=== PATIENT | female | born 2005 | race Caucasian/White ===

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

== ENCOUNTER → 2025-04-30 10:23 | Outpatient (BNVA) | payer MEDICAID, SELFPAY | PROVIDERS: PCP Nurse Practitioner Family; Visit Provider Nurse Practitioner Women's Health | DX: Z01.419 Encounter for gynecological examination (general) (routine) without abnormal findings (principal) | CPT/HCPCS: 87491; 87591; 87661; 88175 ==

== ENCOUNTER 2025-09-08 12:49 | Emergency (ER) | payer MEDICAID, SELFPAY ==
[2025-09-08 12:51] VITALS: BP 147/97; PULSE 116; TEMP 37.1; O2SAT 99
--- OUTSIDE RECORDS SUMMARY | 2025-09-08 12:54 | XMS_ITS | Clinical Summary ---
Author Organization [facility] Address [address] [facility] [address] [place] [address] Phone Care Team Providers Care Quality Control Inspector Name Role Phone Unavailable Primary Care Provider Unavailabl e Allergies Active Allergy Reactions Criticality Noted Date Comments Doxycycline Rash Low 02/16/2022 Medications norgestimate-eth inyl estradioL (ORTHO TRI-CYCLEN) 0.18/0.215/0.25 mg-35 mcg (28) tablet Take 1 Tablet by mouth daily. Active Social History Tobacco Use Types Packs/Day Years Used Date Smoking Tobacco: Never Smokeless Tobacco: Never Alcohol Use Standard Drinks/Week Comments Never 0 (1 standard drink = 0.6 oz pur e alcohol) Comments No Sex and Gender Information Value Date Recorded Sex Assigned at Not on file Legal Sex Female 10:23 PM CDT Gender Identity Not on file Sexual Orientation Not on file Last Filed Vital Signs Vital Sign Reading Time Taken Comments Blood Pressure 116/84 02/17/2022 12:15 AM CDT Pulse 87 02/17/2022 12:15 AM CDT Temperature 36.9 C (98.4 F) 02/16/2022 10:29 PM CDT Respiratory Rate 17 02/17/2022 12:15 AM CDT Oxygen Saturation 100% 02/17/2022 12:15 AM CDT Inhaled Oxygen Concentration - - Weight 56.1 kg (123 lb 9.6 oz) 02/16/2022 10:29 PM CDT Height 160 cm (5' 3 ) 02/16/2022 10:29 PM CDT Body Mass Index 21.89 02/16/2022 10:29 PM CDT Plan of Treatment Health Maintenance Due Date Last Done Comments CHLAMYDIA SCREENING (ANNUAL) 11-24 YEARS 2014 HPV VACCINES (1 - 3-dose series) 2018 DTAP/TDAP/TD VACCINES (1 - Tdap) 2022 HEPATITIS B VACCINES (1 of 3 - 19+ 3-dose series) 03/25 CERVICAL CANCER SCREENING 2024 HPV/Cotest (21-29) 2024 PAP SMEAR 2024 INFLUENZA VACCINE (#1) 2025 Insurance [facility] [facility] MEDICAID
[2025-09-08 13:12] LABS: Glucose Urine UA Negative (Normal); Nitrate Urine Negative (Negative); Specific Gravity, Urine 1.017 (1.005-1.030)
[2025-09-08 13:16] LABS: Add Urine Microscopic? YES
--- NOTE | 2025-09-08 13:17 | ED_ITS ---
HPI - Female Genitourinary 2 General: Chief complaint: Urogenital-Female Stated complaint: abd pain Time Seen by Provider: 09/08/25 13:12 Source: patient Mode of arrival: ambulatory Limitations: no limitations History of Present Illness: 20-year-old female states she has been h aving left flank pain that has been going on over the last 2 days. States sharp pain worse with palpation rates the pain a 6 out of 10 currently. States she has had some dysuria and hematuria. She denies any vomiting or diarrhea denies any fevers. Related Data Previous Rx's ?Medication ?Instructions ?Recorded norgestimate-ethinyl estradiol 1 tab PO DAILY #84 tabs 10/31/24 0.18mg/0.215mg/0.25mg-0.035mg(28)tablet (Ortho Tri-Cyclen (28)) cephalexin 500 mg capsule 500 mg PO TID 7 days #21 cap s 09/08/25 ondansetron 4 mg disintegrating 4 mg PO Q6H PRN nausea and 09/08/25 tablet vomiting #14 tabs Allergies Allergy/AdvReac Type Severity Reaction Status Date / Time doxycycline Allergy Mild rash Verified 09/08/25 12:56 Review of Systems 2 : Reports: flank pain and dysuria PFSH ED 2 PFSH: Medical History Surveillance for control, oral contraceptives Environmental and seasonal allergies Surgical History Hx of appendectomy Family History (Updated 04/30/25 @ 09:40 by Lissette Barnes CMA) Grandfather Heart disease Hyperlipidemia Father Hypertension Denies family history of Colon cancer Ovarian cancer Diabetes Dementia Breast cancer Uterine cancer Thyroid disease Stroke Social History Smoking and tobacco/nicotine status: former use of tobacco/nicotine Second hand smoke exposure: No Alcohol intake: never Substance/Drug Use: never Adopted: No Highest education level completed: 12th Grade, No Diploma Current occupation: [employer] Do you think of yourself as: Straight/Heterosexual Current gender identity: Female Female Reproductive History: Para: 0 Physical Exam 2 Const: COMMON NORMALS: no acute distress, patient oriented x3 and healthy appearing HENMT: COMMON NORMALS: normocephalic and atraumatic HEAD & SCALP: n ormocephalic and atraumatic Neck/C-Spine: COMMON NORMALS: full ROM and supple Chest: COMMONS NORMALS: normal inspection of the chest and normal palpation of entire chest wall Resp: COMMON NORMALS: normal respiratory effort, No retractions, No use of accessory muscles and clear to auscultation bilaterally AUSCULTATION: clear to auscultation bilaterally Cardio: COMMON NORMALS: regular rate, regular rhythm and No murmurs present (Cardio) RATE: regular rate RHYTHM: regular rhythm GI: COMMON NORMALS: Normal to inspection, nondistended, normoactive bowel sounds present, Soft to palpation, non-tender and no masses PALPATION: Yes Soft to palpation Extremity: COMMON NORMALS: normal to inspection and full ROM Neuro: COMMON NORMALS: patient oriented x3, moves all extremities and no focal motor deficits Psych: COMMON NORMALS: mental status grossly normal, Normal thought process present and cooperative THOUGHT PROCESS: Normal thought process present Skin: COMMON NORMALS: no rashes or lesions noted and no wounds GENERAL SKIN EXAM: no rashes or lesions noted Course 2 Vital Signs: Vital signs: Vital Signs Temperature 98.8 F 09/08/25 12:51 Pulse Rate 116 H 09/08/25 12:51 Respiratory Rate 16 09/08/25 13:43 Blood Pressure 147/97 09/08/25 12:51 Pulse Oximetry 96 09/08/25 13:43 Oxygen Delivery Me thod Room Air 09/08/25 12:51 MDM - Female Medical Decision Making Patient presents with left flank pain along with dysuria is been going on for 2 days. Differential includes kidney stone, UTI, pyelonephritis. Patient's pain here has improved blood work shows no significant abnormality white count here is normal no signs of sepsis urine does show UTI. She is not in severe pain and is mainly when she urinates no signs of kidney stone. Did give her IV Rocephin here along with fluids will prescribe her Keflex and Zofran for home she is to follow-up with her PCP and return if worsening I did go over all these findings with her she understands agrees to plan. Medical Records I reviewed the patient's medical records. Lab Data I reviewed the patient's lab results. 09/08/25 13:25 09/08/25 13:25 Laboratory Results WBC 10.65 10^3/uL (3.29-11.43) 09/08/25 13:25 RBC 4.56 10^6/uL (3.85-5.65) 09/08/25 13:25 Hgb 13.70 g/dL (11.27-16.99) 09/08/25 13:25 Hct 40.2 % (36-47) 09/08/25 13:25 MCV 88.2 fl (85-98) 09/08/25 13:25 MCH 30.0 pg (27-33) 09/08/25 13:25 MCHC 34.1 g/dL (30-55) 09/08/25 13:25 RDW 12.4 % (12.1-15.1) 09/08/25 13:25 Plt Count 250 10^3/cmm (157-399) 09/08/25 13:25 MPV 9.5 fL (7.4-10.4) 09/08/25 13:25 Neut % (Auto) 78.2 % 09/08/25 13:25 Lymph % (Auto) 11.0 % 09/08/25 13:25 [place] % (Auto) 10.1 % 09/08/25 13:25 Eos % (Auto) 0.0 % 09/08/25 13:25 Baso % (Auto) 0.3 % 09/08/25 13:25 Neut # (Auto) 8.33 10^3/uL (1.8-7.7) H 09/08/25 13:25 Lymph # (Auto) 1.2 10^3/uL (0.8-4.8) 09/08/25 13:25 [place] # (Auto) 1.1 10^3/uL (0.2-0.9) H 09/08/25 13:25 Eos # (Auto) 0.0 10^3/uL (0.0-0.8) 09/08/25 13:25 Baso # (Auto) 0.0 10^3/uL (0.0-0.1) 09/08/25 13:25 Nucleated RBC % (auto) 0 % 09/08/25 13:25 Nucleated RBCs # 0.0 /100WBC 09/08/25 13:25 Sodium 133 mmol/L (136-145) L 09/08/25 13:25 Potassium 4.1 mmol/L (3.5-5.1) 09/08/25 13:25 Chloride 99 mmol/L (98-107) 09/08/25 13:25 Carbon Dioxide 23 mmol/L (22-29) 09/08/25 13:25 Anion Gap 15.1 (5-19) 09/08/25 13:25 BUN 8 mg/dL (6-20) 09/08/25 13:25 Creatinine 0.7 mg/dL (0.5-0.9) 09/08/25 13:25 GFR Calculation 104.6 mL/min (90-130) 09/08/25 13:25 Glucose 104 mg/dL (65-115) 09/08/25 13:25 Calculated Osmolality 275 mOsm/kg (285-295) L 09/08/25 13:25 Calcium 9.6 mg/dL (8.5-10.5) 09/08/25 13:25 Total Bilirubin 0.6 mg/dL (0.15-1.2) 09/08/25 13:25 AST 11 U/L (0-32) 09/08/25 13:25 ALT 9 U/L (0-33) 09/08/25 13:25 Alkaline Phosphatase 75 U/L (35-105) 09/08/25 13:25 Total Protein 8.0 g/dL (6.6-8.7) 09/08/25 13:25 Albumin 4.3 g/dL (3.5-5.2) 09/08/25 13:25 Globulin 3.7 g/dL (1.3-4.6) 09/08/25 13:25 Lipase 12 U/L (13-60) L 09/08/25 13:25 HCG, Qual Negative (Negative) 09/08/25 13:25 Urine Color Yellow (Yellow) 09/08/25 13:06 Urine Appearance Turbid (CLEAR) A 09/08/25 13:06 Urine pH 5.5 (5-7) 09/08/25 13:06 Ur Specific [place] 1.017 (1.005-1.030) 09/08/25 13:06 Urine Protein 3+ (Negative) A 09/08/25 13:06 Urine Glucose (UA) Negative (Normal) 09/08/25 13:06 Urine Ketones 1+ (Negative) H 09/08/25 13:06 Urine Blood 2+ (Negative) A 09/08/25 13:06 Urine Nitrate Negative (Negative) 09/08/25 13:06 Urine Bilirubin Negative (Negative) 09/08/25 13:06 Urine Urobilinogen 1.0 mg/dL (Negative) 09/08/25 13:06 Ur Leukocyte Esterase 2+ (Negative) A 09/08/25 13:06 Urine RBC 6-10 /hpf (0-2) 09/08/25 13:06 Urine WBC >100 /hpf (0-5) H 09/08/25 13:06 Ur Squamous Epith Cells 6-10 /hpf (0-5) 09/08/25 13:06 Amorphous Sediment Not Reportable 09/08/25 13:06 Urine Bacteria Trace /hpf (NONE) 09/08/25 13:06 Hyaline Casts 1.65 /lpf 09/08/25 13:06 No radiology studies performed this visit Discharge Plan Discharge Patient Disposition: Home Clinical Impression: Urinary tract infection Condition: Stable Prescriptions: New cephalexin 500 mg capsule 500 mg PO TID 7 Days Qty: 21 0RF ondansetron 4 mg tablet,disintegrating 4 mg PO Q6H PRN (Reason: nausea and vomiting) Qty: 14 0RF No Action norgestimate-ethinyl estradiol [Ortho Tri-Cyclen (28)] 0.18/0.215/0.25 mg-35 mcg (28) tablet 1 tab PO DAILY Qty: 84 3RF Discharge Orders: Discharge ED (Routine); Ordered 09/08/25 Ordered By: Naima Ledesma Referrals: Maria Elena Meeks FNP-C [Primary Care Provider, Family Practice] Discharge Diet: Advance as tolerated Discharge Activity: Resume usual activity Patient Instructions: Urinary Tract Infection in Women (ED) Print Language: Estonian Coding Level of Care Code ED Business Account Leader for Nadia Padilla
[2025-09-08 13:34] LABS: Hematocrit 40.2 % (36-47); Hemoglobin 13.70 g/dL (11.27-16.99); Mean Corpuscular HGB Conc 34.1 g/dL (30-55); Mean Corpuscular Hemoglobin 30.0 pg (27-33); Mean Corpuscular Volume 88.2 fl (85-98); Nucleated Red Blood Cells % 0 %; Platelet Count 250 10^3/cmm (157-399); Red Blood Count 4.56 10^6/uL (3.85-5.65); White Blood Count 10.65 10^3/uL (3.29-11.43)
[2025-09-08 13:43] VITALS: RESP 16; O2SAT 96
[2025-09-08] MEDS: ondansetron 2 mg/ML SDV 2 mL 4 MG IVP (13:43)
[2025-09-08] MEDS: morphine 4 mg/mL SDV 1 mL IVP (13:43)
[2025-09-08 13:44] LABS: UA Slide Review UA Slide Review Perf
[2025-09-08 13:46] LABS: HCG, Serum Qual Negative (Negative)
[2025-09-08 13:50] LABS: Alanine Aminotransferase 9 U/L (0-33); Albumin Level 4.3 g/dL (3.5-5.2); Alkaline Phosphatase 75 U/L (35-105); Anion Gap 15.1 (5-19); Aspartate Amino Transferase 11 U/L (0-32); Blood Urea Nitrogen 8 mg/dL (6-20); Calcium 9.6 mg/dL (8.5-10.5); Carbon Dioxide 23 mmol/L (22-29); Chloride 99 mmol/L (98-107); Globulin 3.7 g/dL (1.3-4.6); Glucose 104 mg/dL (65-115); Lipase 12 U/L (13-60); Osmolality Calculated 275 mOsm/kg (285-295); Potassium 4.1 mmol/L (3.5-5.1); Sodium 133 mmol/L (136-145); Total Protein 8.0 g/dL (6.6-8.7)
[2025-09-08] MEDS: cefTRIAXone 1,000 mg SDV 1000 MG IVP (14:20)
[2025-09-08 14:26] VITALS: BP 136/82; PULSE 118; O2SAT 96
== END 2025-09-08 14:30 | disposition home or self-care (01) ==
PROVIDERS: Emergency Provider Emergency Medicine; PCP Nurse Practitioner Family
DX: N39.0 Urinary tract infection, site not specified (principal); Z87.891 Personal history of nicotine dependence
CPT/HCPCS: 80053; 81001; 83690; 84703; 85025; 87077; 87086; 87186; 96361; 96374; 96375; 99284; J0696; J2270; J2405; J7030